=== PATIENT | female | born 1945 | race Caucasian/White ===

== ENCOUNTER 2019-01-09 10:08 | Observation (INO) | payer MEDICARE ==
--- NOTE | 2019-01-09 10:41 | ED ---
HPI Chest Pain - HPI Summary HPI Summary: This patient is a 73 year old F presenting to [facility] with a chief complaint of L anterior CP described as pressure since last week which is rated a 5/10 in severity. She states that she was gardening last when the CP began. States that the pain is intermittent and that her lack of sleep aggravates the pain. She reports having intermittent lightheadedness, radiating pain to her shoulder blades, anxiety, and extreme fatigue over the last week. The Pain has increased in the past week. She denies any SOB, fevers, abdominal pain, N/V/D, and headaches. Pt has flatus. Pt without history of similar pain. Pt states she had her annual physical on December 20 ago. States PCP was concerned she "might have had a anterior heart attack" and she is scheduled has a stress test scheduled for January 30. She has had issues with sleeping for a while and reports trying multiple different remedies to help her sleep including clonazepam and CBD oil. Pt also started using patches to assist sleep x 1 week she purchased on the internet - states contains melatonin and medications. She is currently retired and lives alone. Patients medication reviewed this visit. Pt wit HTN,. HLD dad with NE in 50s. No tobacco, no h/o stress test Pt is on methrotrexate - History of Current Complaint Chief Complaint: EDChestPainROMI Time Seen by Provider: 01/09/19 10:29 Hx Obtained From: Patient Onset/Duration: Started Weeks Ago, Still Present Timing: Intermittent Initial Severity: Moderate Current Severity: Moderate Pain Intensity: 5 Pain Scale Used: 0-10 Numeric Chest Pain Location: Left Anterior Chest Pain Radiates: Yes Chest Pain Radiates To:: Back - middle of her shoulder blades Character: Pressure/Squeezing Aggravating Factor(s): Other: - lack of sleep Alleviating Factor(s): Nothing Associated Signs and Symptoms: Positive: Chest Pain - L anterior, Anxiety, Lightheadedness - intermittent, Back Pain - inbetween her shoulder blades, Other : - NEGATIVE: diarrhea. Negative: Headaches, Shortness of Breath, Fever, Nausea , Abdominal Pain, Vomiting - Allergy/Home Medications Allergies/Adverse Reactions: Allergies Allergy/AdvReac Type Severity Reaction Status Date / Time MS Hydroxychloroquine Allergy Intermediate Rash Verified 04/04/14 09:42 [From Plaquenil] hydroxychloroquine Allergy Rash Verified 01/09/19 10:20 [From Plaquenil] Home Medications: Home Medications Atorvastatin* [Lipitor*] 40 mg PO BEDTIME 01/09/19 [History Confirmed 01/09/19] Cbd Oil 1,500 mg PO DAILY 01/09/19 [History Confirmed 01/09/19] Methotrexate TAB* 7.5 mg PO TU 01/09/19 [History Confirmed 01/09/19] amLODIPine TAB* [Norvasc 5 mg TAB*] 5 mg PO BEDTIME 01/09/19 [History Confirmed 01/09/19] clonazePAM TAB(*) [KlonoPIN TAB(*)] 0.5 mg PO BEDTIME PRN 01/09/19 [History Confirmed 01/09/19] PMH/Surg Hx/FS Hx/Imm Hx Previously Healthy: No - fibromyalgia, uveitis, IBD, on immunosuppressant Endocrine/Hematology History: Denies: Hx Diabetes, Hx Thyroid Disease Cardiovascular History: Reports: Hx Hypercholesterolemia, Hx Hypertension Denies: Hx Pacemaker/ICD Respiratory History: Denies: Hx Asthma, Hx Chronic Obstructive Pulmonary Disease (COPD) History: Denies: Hx Renal Disease Sensory History: Denies: Hx Hearing Aid Neurological History: Denies: Hx Dementia, Hx Seizures Psychiatric History: Denies: Hx Panic Disorder, Hx Substance Abuse - Cancer History Hx Chemotherapy: No Hx Radiation Therapy: No - Surgical History Surgery Procedure, Year, and Place: GALLBLADDER. TUBAL LIGATION. VEIN - STRIPPING - Lt LEG. HYSTERECTOMY. APPENDECTOMY. CATARACTS -ALVINA. ELIJAH- FUNDOPLICATION Infectious Disease History: No Infectious Disease History: Denies: Hx Hepatitis, Hx Human Immunodeficiency Virus (HIV), Traveled Outside the [place] in Last 30 Days - Family History Known Family History: Positive: Cardiac Disease - father of a NE at 56, mother and brother has a Hx of NE, Hypertension - Social History Occupation: Retired Lives: Alone Alcohol Use: Occasionally Hx Substance Use: No Substance Use Type: Reports: None Hx Tobacco Use: No Smoking Status (MU): Never Smoked Tobacco Review of Systems Positive: Fatigue, Other - insomnia. Negative: Fever Eyes: Negative Positive: Chest Pain - L anterior Negative: Shortness Of Breath Negative: Abdominal Pain, Vomiting, Diarrhea, Nausea Positive: Other - POSITIVE: back pain - middle of shoulder blades Neurological: Other - POSITIVE: intermittent lightheadedness Negative: Headache Positive: Anxious All Other Systems Reviewed And Are Negative: Yes Physical Exam - Summary Physical Exam Summary: Vital Signs Reviewed: Yes A+Ox3, no distress, mildly anxious Eyes: Conjunctiva Clear, USRESH. EOM intact and full ENT: Hearing grossly normal TM x 2 clear, mmoist, uvula midline, no exudate, no erythema Neck: Positive: Supple Respiratory: Positive: No respiratory distress, No accessory muscle use + CTA throughout no w/r no chest wall pain Cardiovascular: RRR nl s1, s2 no m/r CBT <2 sec, no bruits abd soft + BS nt/nd no guarding, no distension Musculoskeletal Exam: COTTRELL x 4 without difficulty Strength Intact, ROM Intact Neurological: Positive: Alert, + sensation throughout Psychological: Positive: Normal Response To Family Skin: Positive: no rash, no ecchymosis Triage Information Reviewed: Yes Vital Signs On Initial Exam: Initial Vitals Temp Pulse Resp BP Pulse Ox 97.9 F 71 16 149/60 100 01/09/19 10:17 01/09/19 10:17 01/09/19 10:17 01/09/19 10:17 01/09/19 10:17 Diagnostics - Vital Signs Vital Signs Temp Pulse Resp BP Pulse Ox 01/09/19 10:17 97.9 F 71 16 149/60 100 - Laboratory Result Diagrams: 01/09/19 10:51 01/09/19 10:51 Lab Statement: Any lab studies that have been ordered have been reviewed, and results considered in the medical decision making process. - Radiology No standard instances Radiology Interpretation Completed By: Radiologist - Patient Name: En LOCKHART Medical Record#: [id number] Ordering Physician: Leyla Rosas MD Acct.#: [id number] : 1945 Age: 73 Sex: F Location: EMERGENCY DEPARTMENT Exam Date: 01/09/19 1029 ADM Status: REG ER Order Information: CHEST AP OR PORT Accession Number: [id number] CPT: 00386 HISTORY: chest pain COMPARISONS: December 02, 2009 VIEWS: 1: frontal AP view of the chest at 11:03 AM FINDINGS: LINES AND TUBES: None. CARDIOMEDIASTINAL SILHOUETTE: The cardiomediastinal silhouette is normal for portable technique. PLEURA: The costophrenic angles are sharp. No pleural abnormalities are noted. LUNG PARENCHYMA: The lungs are clear. ABDOMEN: The upper abdomen is clear. There is no subphrenic gas. BONES AND SOFT TISSUES: No bone or soft tissue abnormalities are noted. IMPRESSION: NO ACTIVE CARDIOPULMONARY DISEASE. <Electronically signed by Jamil Mccarty MD in OV> 01/09/19 1120 Dictated By: Jamil Mccarty MD Dictated Date/Time: 01/09/19 1120 Transcribed Date/Time: 01/09/19 1119 Copy to: CC:Leyla Rosas MD; No Primary Care Phys,NOPCP Imaging - [facility] Imaging - [facility] Imaging - [facility] [address] [address] ph ) ph ([phone]) ph ([phone]) This report is only to be considered final once signed by the Provider(s) as displayed in the "< Electronically Signed by >" field (s). Absence of a signature indicates the report is in a draft status and still needs to be finalized. In the event this document was created by someone other than the signing Provider, the individual initiating the document will be listed in the "Entered by:" or "Dictated by:" amin. 1 of 1 Summary of Radiographic Findings: No active pulmonary disease - EKG 1014 Cardiac Rate: NL - 72 BPM EKG Rhythm: Sinus Rhythm ST Segment: Normal Ectopy: None EKG Comparison: No Significant Change - August 2016 Summary of EKG Findings: 1014 NSR at a rate of 72 BPM . There are no acute ST or T wave changes and no significant change from August [address]. Interpreted [address] Rosas 01/09/19 1034. Re-Evaluation - Re-Evaluation First Eval Comment: reviewed labs and CXR with pt. troponin neg. will d/w hospitalist regarding OBV Second Eval Re-Evaluation Time: 11:48 Comment: Pt asked for motrin for her back pain. Chest Pain Course/Dx - Course Course Of Treatment: Patient presents to urgent care reporting intermittent left -sided chest pain for the last week. Patient states it radiates to her left arm and her back. Patient denies nausea vomiting or shortness of breath. Patient states she was told that her PCP william abnormal EKG and scheduled for an outpatient stress test. Patient has not taken anything for the pain. Patient with history of hypertension, hyperlipidemia, and strong family history. Patient does not smoke cigarettes. Patient does not take anticoagulant. On exam blood pressure mildly elevated. Patient with a history of hypertension and states her blood pressure does fluctuate. Patient took her blood pressure medicine last evening. Nothing focal on exam. EKG reviewed does not reveal ST elevation NE. We'll start patient on dose of aspirin. Check labs telemetry anticipate patient will likely need observation admission for chest pain. Pt aware and in agreement with plan - Diagnoses Provider Diagnoses: Chest pain - Provider Notifications Discussed Care Of Patient With: Sri Arriaga - 11:48 Instructed by Provider To: Admit As Observation Discharge - Sign-Out/Discharge Documenting (check all that apply): Patient Departure Patient Received Moderate/Deep Sedation with Procedure: No - Discharge Plan Condition: Stable Disposition: ADMITTED TO [facility] Referrals: No Primary Care Phys,NOPCP [Primary Care Provider] - - Billing Disposition and Condition Condition: STABLE Disposition: Admitted to [facility] - Attestation Statements Document Initiated by Angel: Yes Documenting Scribe: Aftab Singh Provider For Whom Angel is Documenting (Include Credential): Leyla Rosas MD Scribe Attestation: Aftab Matthews, scribed for Leyla Rosas MD on 01/09/19 at 1201. Scribe Documentation Reviewed: Yes Provider Attestation: The documentation as recorded by the Aftab nelson accurately reflects the service I personally performed and the decisions made by me, Leyla Rosas MD Status of Scribe Document: Viewed
[2019-01-09] MEDS ORDERED: Aspirin 81 mg CHEW TAB* 81 MG TAB.CHEW PO ONE (10:50)
[2019-01-09 11:03] LABS: ABS Lymphocytes 1.4 10^3/ul (1.0-4.8); ABS Monocytes 0.5 10^3/ul (0-0.8); Eosinophil % 0.8 %; Hematocrit 41 % (35-47); Lymphocyte % 23.5 %; Mean Corpuscular HGB Conc 34 g/dL (31-36); Mean Corpuscular Hemoglobin 31 pg (27-31); Mean Corpuscular Volume 91 fL (80-97); Mean Platelet Volume 8.3 fL (7.4-10.4); Platelet Count 307 10^3/uL (150-450); Red Blood Count 4.54 10^6 /uL (3.70-4.87); Red Cell Distribution Width 14 % (10-15)
[2019-01-09 11:22] LABS: INR 0.97 (0.82-1.09)
[2019-01-09 11:27] LABS: Albumin 4.2 g/dL (3.2-5.2); Albumin/Globulin Ratio 1.8 (1-3); BUN/Creatinine Ratio 18.5 (8-20); Calcium 9.7 mg/dL (8.6-10.3); EGFR African American 108.7 (>60); EGFR Non-African American 89.9 (>60); Globulin 2.4 g/dL (2-4); Potassium 4.1 mmol/L (3.5-5.0); Total Bilirubin 0.5 mg/dL (0.2-1.0); Total Protein 6.6 g/dL (6.4-8.9)
[2019-01-09] MEDS ORDERED: Ibuprofen TAB* 600 MG PO ONE (11:47)
[2019-01-09] MEDS ORDERED: clonazePAM TAB(*) 0.5 MG PO PRN (13:49)
[2019-01-09] MEDS ORDERED: Acetaminophen TAB* 325 MG PO PRN (13:49)
--- NOTE | 2019-01-09 15:32 | HP ---
CC: Dr. Douglass * HISTORY AND PHYSICAL: DATE OF ADMISSION: 01/09/19 PRIMARY CARE PHYSICIAN: Dr. Douglass. ATTENDING PHYSICIAN: Dr. Sri Arriaga * (dictation provided by Sasha Sawyer NP ). CHIEF COMPLAINT: Chest pain and back pain. HISTORY OF PRESENT ILLNESS: Ms. Blanco is a 73-year-old female with a past medical history of rheumatoid arthritis; on methotrexate as well as fibromyalgia , irritable bowel syndrome, hypertension, and hyperlipidemia who presents to the hospital with concern for back and chest pain. Ms. Blanco states that she has been having about 6 months' issue with insomnia. She went to see her primary care physician, Dr. Douglass, on 12/20/18 and had a physical. At that time, she described how after not being able to sleep at night, she would have issues with "feeling like my heart is working hard." For this reason, Dr. Douglass obtained an EKG and made a plan for her to have a stress echo on . The patient states that on reflection she had a feeling of chest heaviness on and off for years, but it had never been very pronounced and she had not sought care for it; however, since seeing Dr. Douglass she has noticed this feeling more prominently. Last Wednesday, she did yard work for about 3 hours and thereafter felt very tired and had back pain. Since then, she has been having constant back pain between her shoulders. She describes it as a deep pain radiating in her chest. She describes a chest heaviness or "feeling of being clogged." The pain seems to be growing in intensity and is more consistent than it ever has been and therefore, she presented to the hospital for evaluation. At this time, she said she has some deep back pain. In the emergency room, she had labs that showed a troponin of 0.00 and EKG which showed sinus rhythm and no evidence of ischemia. Her risk factors include hypertension, hyperlipidemia, but she also has a very strongly positive family history with the father having a first WA in his 40s and dying at age 56 and a brother who also had WA in his early 50s. PAST MEDICAL HISTORY: 1. Rheumatoid arthritis. 2. Fibromyalgia. 3. Irritable bowel syndrome. 4. Hypertension. 5. Hyperlipidemia. 6. Bilateral uveitis. OUTPATIENT MEDICATIONS: 1. CBD oil for chronic pain. 2. Methotrexate 7.5 mg p.o. on Tuesdays. 3. Atorvastatin 40 mg p.o. at bedtime. 4. Amlodipine 5 mg p.o. at bedtime. 5. Clonazepam 0.5 mg p.o. at bedtime p.r.n. ALLERGIES: HYDROXYCHLOROQUINE. FAMILY HISTORY: The patient reports again that her father had a heart attack in his late 40s and at age 56 from an WA. Brother had a heart attack in his 50s. Mother had multiple heart attacks, but later in life after age 70. SOCIAL HISTORY: The patient was a prior smoker in her 20s. She denies any drug use and drinks alcohol very occasionally. She states that her healthcare proxy will be her brother, Cruz Blanco. REVIEW OF SYSTEMS: A 14-point review of systems was completed with Ms. Blanco and all those not mentioned above were negative. PHYSICAL EXAMINATION GENERAL: Ms. Blanco is lying in the hospital bed. She is in no acute distress. VITAL SIGNS: Temperature 97.9, pulse rate 58, respiratory rate 15, O2 saturation 97% on room air, blood pressure 154/59. LUNGS: Clear to auscultation bilaterally with no accessory muscle use and good aeration. HEART: S1 and S2. No murmur, rub, or gallop and regular. ABDOMEN: Soft, nontender. Bowel sounds are positive x4. EXTREMITIES: No cyanosis or edema. NEUROLOGIC: She is alert. She is oriented x3. She moves all extremities equally. There is no facial asymmetry or focal weakness. Extraocular movements are intact. SKIN: Intact. BACK: I palpated the patient's paraspinal area and between the shoulder blades. She has only mild tenderness to palpation. It does not reproduce the pain that she describes. DIAGNOSTIC STUDIES/LAB DATA: Sodium 137, potassium 4.1, chloride 104, serum bicarbonate 25, BUN 12, creatinine 0.65, glucose 114. WBC 6.0, hemoglobin 14.0 , hematocrit 41, platelet count 307. INR 0.75. ASSESSMENT AND PLAN: Ms. Blanco is a 73-year-old female with past medical history of hypertension, hyperlipidemia, positive family history for early coronary artery disease with myocardial infarction who presents to the hospital with concern for back and chest pain. Our plans are for observation in the hospital for the followin. Back and chest pain: The patient's symptoms have been ongoing for sometime , but appear to be increasing in intensity. She does have a positive family history and risk factors of hypertension and hyperlipidemia; therefore, she requires observation in the hospital overnight for stress testing. Our plans will be for repeat troponins for a total of 3. She will have EKGs with her troponin at 4 o'clock today. She will have aspirin. We will continue her atorvastatin and check lipids in the a.m. She will have telemetry monitoring and a stress test tomorrow. 2. Hypertension: Continue amlodipine. 3. Hyperlipidemia: Continue atorvastatin. 4. Rheumatoid arthritis. Continue methotrexate. 5. Anxiety: Continue clonazepam. 6. Code status: Full code. TIME SPENT: Approximately 60 minutes were spent on the admission of this patient, more than half of that time was spent with the patient at the bedside reviewing the events leading up to this hospitalization, performing the physical examination, and reviewing my plan of care. SASHA SAWYER NP [id number]/CPS #: [id number] DEONDRE
[2019-01-09] MEDS: traMADol TAB* 50 MG PO PRN (16:23)
[2019-01-09] MEDS ORDERED: amLODIPine TAB* 5 MG PO SCH (21:00)
[2019-01-09] MEDS ORDERED: Atorvastatin* 40 MG TAB PO SCH (21:00)
[2019-01-10 07:50] LABS: HDL Cholesterol 90.7 mg/dL
[2019-01-10] MEDS ORDERED: Aspirin 81 mg CHEW TAB* 81 MG TAB.CHEW PO SCH (09:00)
[2019-01-10] MEDS: traMADol TAB* 50 MG PO PRN (11:14)
--- NOTE | 2019-01-10 16:02 | ECHO ---
*[facility]* [place] [address] Fax #: [phone] Transthoracic Echocardiogram Patient: En Blanco : 1945 Study Date: 01/10/2019 Age: 73 Gender: F HR: 63 bpm Height: 720 in /1828.8 cm Weight: 100.8 lb /45.8 kg BMI/BSA: 0.1 kg/m^2 3.73 m^2 HR: 63 bpm *Loan Supervisor: * Radha Lopez RDCS RN *Referring Physician: * Shelby CuelloReading Physician: * Milton Garcia MD Indications: Chest Pain, unspecified. History: Fibromyalgia. Rheumatoid arthritis. Risk factors: Former tobacco use. Hypertension. Dyslipidemia. Family history is significant for coronary artery disease. Conclusions Summary: 1. Left ventricle: The cavity size is mildly reduced. Wall thickness is mildly to moderately increased. Systolic function is normal. The estimated ejection fraction is 60-65%. Wall motion is normal; there are no regional wall motion abnormalities. 2. Right ventricle: Systolic function is normal. 3. Mitral valve: There is mild to moderate regurgitation. 4. Aortic valve: There is no evidence of stenosis. 5. Pericardium, extracardiac: There is no significant pericardial effusion. 6. Study data: No prior study is available for comparison. Study data: Transthoracic echocardiogram. Procedure: Transthoracic echocardiography was performed. Image quality was fair. Complete 2D, spectral Doppler, and color flow Doppler. Patient status: Observation. Patient room number: 441-02. No prior study is available for comparison. Rhythm: Normal sinus rhythm. Findings Left ventricle: The cavity size is mildly reduced. Wall thickness is mildly to moderately increased. Systolic function is normal. The estimated ejection fraction is 60-65%. Wall motion is normal; there are no regional wall motion abnormalities. There is no consistent Doppler evidence of clinically significant diastolic dysfunction. Right ventricle: The cavity size is normal. Systolic function is normal. Left atrium: The atrium is normal in size. Right atrium: The atrium is normal in size. Mitral valve: The leaflets are mildly thickened. There is no evidence of stenosis. There is mild to moderate regurgitation. Aortic valve: The valve is trileaflet. The leaflets are mildly thickened. There is no evidence of stenosis. There is no regurgitation. Tricuspid valve: The valve is structurally normal. There is no evidence of stenosis. There is trace to mild regurgitation. Pulmonic valve: The valve is structurally normal. There is no evidence of stenosis. There is trace regurgitation. Aorta: Aortic root: The aortic root is not dilated. Ascending aorta: The ascending aorta is not dilated. Aortic arch: The aortic arch is not dilated. Pericardium: There is no significant pericardial effusion. Pulmonary arteries: The main pulmonary artery is normal-sized. Systolic pressure is within the normal range, estimated to be 24 mm Hg. Systemic veins: Inferior vena cava: The vessel is normal in size. The respirophasic diameter changes are in the normal range (>= 50%). Measurements Left ventricle Value Ref Aortic valve Value Ref GALA, LAX (L) 3.5 cm 3.8 - 5.2 Osmany diam, ED 1.8 cm ----- ESD, LAX (L) 2.1 cm 2.2 - 3.5 Peak v, S 1.7 m/sec ----- FS, LAX 41 % 27 - 45 VTI, S 40.2 cm ----- PW, ED (H) 1.1 cm 0.6 - 0.9 Mean grad, S 7.0 mm Hg ----- IVS/PW, ED 1.18 Peak grad, S 12.0 mm Hg ----- PW/ID, ED 0.33 LVOT/AV, VTI ratio 0.76 ----- E', lat osmany, TDI (L) 7.9 cm/sec >=10.0 E/e', lat osmany, 11 Mitral valve Value Ref TDI Peak E 0.89 m/sec ----- E', med osmany, TDI 7.9 cm/sec >=7.0 Peak A 1.03 m/sec --- -- E/e', med osmany, 11 Decel time 236 ms ----- TDI Peak grad, D 3.1 mm Hg ----- E', avg, TDI 7.9 cm/sec Peak E/A ratio 0.9 ----- E/e', avg, TDI 11 <=14 Pulmonic valve Value Ref LVOT Value Ref Peak v, S 1.24 m/sec ----- Peak keya, S 1.4 m/sec Peak grad, S 6.0 mm Hg ----- VTI, S 30.5 cm Peak grad, S 8 mm Hg Tricuspid valve Value Ref Mean grad, S 4 mm Hg TR peak v 2.3 m/sec <=2.8 Peak RV-RA grad, S 21 mm Hg ----- Ventricular septum Value Ref Max TR keya 2.3 m/sec ----- IVS, ED (H) 1.3 cm 0.6 - 0.9 Aortic root Value Ref Right ventricle Value Ref Root diam 2.3 cm <5.4 GALA, LAX 2.2 cm GALA minor ax, A4C 3.0 cm 1.9 - 3.5 Ascending aorta Value Ref mid AAo AP diam, S 2.4 cm ----- Pressure, S 24 mm Hg Aortic arch Value Ref Left atrium Value Ref Arch diam 2.2 cm ----- AP dim, ES (H) 3.90 cm 2.70 - 3.80 Decending aorta Value Ref ML dim, A4C 3.8 cm Rajesh peak keya 0.64 m/sec ----- SI dim, A4C 4.9 cm Vol/bsa, ES, 1-p 13 ml/m^2 11 - 40 Pulmonary artery Value Ref A4C Pressure, S 24.0 mm Hg ----- Vol/bsa, ES, A/L (L) 12 ml/m^2 16 - 34 Inferior vena cava Value Ref Right atrium Value Ref Diam 1.2 cm ----- ML dim, ES, A4C 3.6 cm 2.6 - 4.4 SI dim, ES, A4C 4.9 cm 3.4 - 5.3 Estimated RAP 3 mm Hg Legend: (L) and (H) jennifer values outside specified reference range. Prepared and electronically signed by Milton Garcia MD 01/10/2019 16:01
[2019-01-10 16:17] VITALS: BP 116/55
--- NOTE | 2019-01-10 23:35 | DS ---
CC: Dr. Douglass * DISCHARGE SUMMARY: DATE OF ADMISSION: 01/09/19 DATE OF DISCHARGE: 01/10/19 PRIMARY CARE PROVIDER: Dr. Douglass. ATTENDING PHYSICIAN: Dr. Siomara Vazquez * (dictated by KAMI Jenkins). PRIMARY DIAGNOSES: 1. Chest pain. 2. Back pain. SECONDARY DIAGNOSES: 1. Hypertension. 2. Hyperlipidemia. 3. Irritable bowel syndrome. 4. Fibromyalgia. 5. Bilateral uveitis. 6. Rheumatoid arthritis. STUDIES WHILE IN THE HOSPITAL: Chest x-ray, 12/20/18. Impression: No active cardiopulmonary disease. ECG 01/09/19. Rate 72, normal sinus rhythm without ST elevation or depression. Nuclear medicine scan 01/10/19. Nuclear med portion. Impression: No evidence for infarct or ischemia. Assessment: Low risk. EKG portion: Low risk Mead score EKG portion. Transthoracic echocardiogram, 01/10/19. Impression: Left ventricle cavity size mildly reduced, wall thickness [id number] increased. Systolic function normal. EF 60% to 65%, wall motion normal without regional wall motion abnormalities. Right ventricle systolic function normal mitral valve mild-to- moderate regurgitation; aortic valve no evidence of stenosis; pericardium, extracardiac; no significant pericardial effusion. Troponin 0.00 x3. Lipids, triglycerides 118, cholesterol 196, LDL 82, HDL 90.7. DISCHARGE MEDICATIONS: Home Medications: 1. Amlodipine 5 mg p.o. at bedtime. 2. Atorvastatin 40 mg p.o. at bedtime. 3. CBD oil 1500 mg p.o. daily. 4. Clonazepam 0.5 mg p.o. at bedtime p.r.n. anxiety. 5. Methotrexate 7.5 mg p.o. Wednesday. HISTORY OF PRESENT ILLNESS/HOSPITAL COURSE: Ms. Blanco is a 73-year-old female with a past medical history significant for hypertension, hyperlipidemia, fibromyalgia, rheumatoid arthritis, who presented to the hospital on 01/09/19 with complaints of chest and back pain. She states that prior to this for approximately 6 months she has had difficulty sleeping resulting in feeling that her "heart is working hard." She is unable to further quantify or qualify these sensations. Her primary care provider is aware and has planned for a stress echo on 01/30/19. She has been working in her garden since approximately Wednesday, at which time, she worked for about 3 minutes working in her garden doing activity such as cutting and trimming. She notes the next day she had a dull ache in the upper mid back between the shoulder blades and associated fatigue. She also noted left-sided chest pain. She states that she feels "clogged up" in the chest and back area. The patient was evaluated in the ER and was admitted by the hospitalist team. She received a workup for her chest pain to rule out ACS. Troponins were negative x3, EKG was within normal limits. Nuclear medicine stress test including EKG portion revealed low risk. Transthoracic echocardiogram revealed no wall motion abnormalities and an EF of 60% to 65%. At the time of discharge , the patient continues to have intermittent chest pain and back pain, but notes that this has decreased significantly. This may be due muscle strain with repetitive activities during gardening. At discharge, she denies cough, shortness of breath, fever, chills, sweats. She denies abdominal pain, nausea, vomiting, diarrhea, constipation, diaphoresis. She denies pain or swelling in the extremities. She also complains of fatigue, which she has had intermittently and has worsened in the past approximately 6 months. She attributes this to her insomnia, which is being worked up by her primary care provider. Ms. Blanco is stable for discharge. Vital signs are temperature 97.7 temporal, heart rate 64, respiratory rate 18, oxygen saturation 96% on room air, blood pressure 116/58. PHYSICAL EXAMINATION: General: Ms. Blanco is a well-developed, well-nourished normal weight, 73-year-old white female, who is sitting up in bed. She is comfortable, appropriate and cooperative. She appears to be in no acute distress. She is pleasant. HEENT: Extraocular movements intact. Nonicteric sclerae. Hearing grossly intact. Oral mucous membranes are moist. There are no lesions. Cardiopulmonary: Regular rate and rhythm with S1 and S2 present. No murmurs, rubs, clicks, or gallops. Chest wall is nontender to palpation. There is no JVD. Telemetry revealed normal sinus rhythm throughout the stay. Respiratory: Symmetrical chest expansion without the use of accessory muscles. Lungs, clear to auscultation bilaterally without rhonchi, wheeze or rales. Abdomen: Flat, bowel sounds noted in all quadrants. The abdomen is soft. There is no tenderness to palpation. No hepatosplenomegaly. Musculoskeletal: Patient reports sensation of relief with palpation of the back between shoulder blades. Area is nontender to palpation. Left anterior chest wall nontender to palpation. Extremities: Skin is warm and smooth bilaterally in upper and lower extremities. There is no clubbing or cyanosis. There is no edema. Radial and pedal pulses are palpable. Neuro: The patient is awake. She is alert and oriented. She is able to move all of her extremities. Equal strength in upper and lower extremities. DISCHARGE PLAN: Ms. Blanco is stable for discharge to home. CONDITION: Good. ACTIVITY: As tolerated. DIET: Heart healthy. MEDICATIONS: No changes. EDUCATION: 1. Follow up with primary care provider in 4 to 7 days. 2. Return to the ER or nearest hospital if you experience any worsening of symptoms, return or worsening of chest pain, shortness of breath, lightheadedness, dizziness, loss of consciousness, high fevers, chills, night sweats, or any other worrisome signs or symptoms. This is a summarized report of a complex medical history and hospital stay. For further details, please see the entire medical record. TIME SPENT: Approximately 30 minutes was spent on this discharge, greater than half that time was spent [id number] with the patient discussing discharge plans and instructions. KAMI FERRER [id number]/CPS #: [id number]
== END 2019-01-10 16:45 | disposition home or self-care (01) ==
LOC: ED 10:08 → MEDTELE 13:48 → INTOOBSV 13:48
PROVIDERS: ADMIT Internal Medicine; ATTEND Internal Medicine
DX: R07.89 Other chest pain (principal); M54.9 Dorsalgia, unspecified; I10 Essential (primary) hypertension; E78.5 Hyperlipidemia, unspecified; K58.9 Irritable bowel syndrome, unspecified; M79.7 Fibromyalgia; H20.9 Unspecified iridocyclitis; M06.9 Rheumatoid arthritis, unspecified; Z79.899 Other long term (current) drug therapy; R53.83 Other fatigue
CPT/HCPCS: 36415; 71045; 78452; 80053; 80061; 84484; 85025; 85610; 93005; 93017; 93306; 99284; A9270-GY; A9502; G0378

== ENCOUNTER 2022-01-29 10:38 | Observation (INO) ==
[2022-01-29 11:08] LABS: ABS Eosinophils 0.1 10^3/ul (0-0.6); ABS Lymphocytes 1.4 10^3/ul (1.0-4.8); ABS Monocytes 0.5 10^3/ul (0-0.8); Hematocrit 38 % (35-47); Hemoglobin 12.8 g/dL (12.0-16.0); Lymphocyte % 23.3 %; Mean Corpuscular HGB Conc 34 g/dL (31-36); Mean Corpuscular Hemoglobin 31 pg (27-31); Mean Corpuscular Volume 91 fL (80-97); Mean Platelet Volume 7.9 fL (7.4-10.4); Nucleated Red Blood Cells % 0.1; Platelet Count 316 10^3/uL (150-450); Red Blood Count 4.17 10^6 /uL (3.70-4.87); Red Cell Distribution Width 14 % (10-15); White Blood Count 5.9 10^3/uL (3.5-10.8)
[2022-01-29 11:18] LABS: INR 0.97 (0.86-1.15)
[2022-01-29 11:42] LABS: Anion Gap 7 mmol/L (2-11); Blood Urea Nitrogen 11 mg/dL (6-24); CO2 Carbon Dioxide 27 mmol/L (22-32); Chloride 93 mmol/L (101-111); Glucose 104 mg/dL (70-100); Potassium 4.4 mmol/L (3.5-5.0); Sodium 127 mmol/L (135-145)
[2022-01-29 11:43] LABS: ALT 35 U/L (7-52); AST 29 U/L (13-39); Albumin 4.6 g/dL (3.2-5.2); Albumin/Globulin Ratio 1.9 (1-3); Alkaline Phosphatase 67 U/L (35-149); Calcium 9.5 mg/dL (8.6-10.3); Cholesterol 268 mg/dL; Globulin 2.4 g/dL (2-4); HDL Cholesterol 105.4 mg/dL; LDL Cholesterol 135 mg/dL; Triglycerides 137 mg/dL; eGFR CKD-EPI 93.8 (>60)
[2022-01-29 13:13] LABS: Urine Appearance Clear; Urine Bilirubin Negative (Negative); Urine Blood Negative (Negative); Urine Color Straw; Urine Glucose Negative (Negative); Urine Ketones Negative (Negative); Urine Nitrite Negative (Negative); Urine Protein Negative (Negative); Urine Specific Gravity 1.004 (1.002-1.030); Urine Urobilinogen Negative (Negative)
[2022-01-29 14:50] LABS: Vitamin B12 > 1450 pg/mL (180-914)
[2022-01-29] MEDS ORDERED: Gadobenate (CONTRAST) 529 MG/ML 10 ML SDV IV ONE (16:51)
[2022-01-29] MEDS ORDERED: Iohexol 350 (CONTRAST) 500 ML MDV IV ONE (18:55)
[2022-01-29] MEDS ORDERED: Enoxaparin 40 MG/0.4 ML SYR SUBCUT SCH (21:00)
[2022-01-29 22:51] LABS: Osmolality Serum 266 mOsm/kg (275-295)
[2022-01-30 06:12] LABS: Urine Osmo 222 mOsm/kg (150-1150)
[2022-01-30 06:22] LABS: Urine Creatinine Concentration 33.94 mg/dL
[2022-01-30 07:06] LABS: Calcium 9.3 mg/dL (8.6-10.3); Magnesium 2.1 mg/dL (1.9-2.7); Potassium 4.3 mmol/L (3.5-5.0); eGFR CKD-EPI 89.2 (>60)
[2022-01-30] MEDS ORDERED: CYANOCOBALAMIN 100 MCG PO SCH (09:00)
[2022-01-30 15:16] VITALS: BP 123/65
== END 2022-01-30 17:20 | disposition home or self-care (01) ==
LOC: EDHOLD 10:38 → ED 10:38 → MEDTELE 17:00
PROVIDERS: ADMIT Hospitalist; ATTEND Hospitalist